=== PATIENT | male | born 1990 | race Caucasian/White ===

== ENCOUNTER 2018-09-24 10:36 | Emergency (ER) | payer OTHER ==
[2018-09-24 10:43] VITALS: BP 113/77
[2018-09-24] MEDS ORDERED: PROPARACAINE 0.5% 15 ML OPHT DROP OP ONE (10:45)
[2018-09-24] MEDS ORDERED: FLUORESCEIN SODIUM 1 MG STRIP OP ONE (10:45)
[2018-09-24] MEDS ORDERED: OFLOXACIN 0.3% SOLN PREPACK OPHT.BTL TAKEHOME ONE (11:26)
--- NOTE | 2018-09-24 11:41 | EDPHY ---
General Time Seen by Provider: 09/24/18 11:38 Narrative: CHIEF COMPLAINT: something in my eye HISTORY OF PRESENT ILLNESS: Patient present to ED by private vehicle with complaints of something in his right eye. 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 He was not wearing protective goggles. Mild discomfort that evening that became more severe Wednesday evening. Pain has kept him awake, and he feels that something is stuck in his eye. Some blurred vision. No headache or fever. Went to urgent care first, and they sent him here due to foreign body of the eye. Tetanus up to date less than 5 years. He does report contact lens use. No other associated complaints or modifying factors. REVIEW OF SYSTEMS: 10 systems were reviewed and negative with the exception of the elements mentioned in the history of present illness. PCP: None SPECIALISTS: None PAST MEDICAL HISTORY: No ongoing medical problems PAST SURGICAL HISTORY: No recent surgery SOCIAL HISTORY: non smoker. lives and works independently FAMILY HISTORY: non contributory EXAMINATION: Vitals: Triage VS reviewed General Appearance: Alert, no distress. well appearing. Head: normocephalic, atraumatic Eyes: Pupils equal and round, no conjunctival pallor. mild right eye conjunctival injection. no hyphema or subconjunctival hemorrhage. i do not appreciate papilledema Slit lamp: fluorescein uptake at 12 o'clock position. hyperpigmentation at 2 o' clock position, reportedly chronic. small (1mm) foreign body at 6 o'clock position with small area of surrounding rust ring. able to remove this with sterile eye bur. no floaters or cell appreciated in the anterior chamber. Neurological: A&O, nonfocal, normal gait Skin: Warm and dry, no rash. no periorbital or facial cellulitis. DIFFERENTIAL DIAGNOSES: Including but not limited to corneal abrasion, conjunctival abrasion, conjunctival foreign body, corneal ulceration. MDM: 11:15 am. Acute right conjunctival foreign body with corneal abrasion and small rust ring retained. There was no metal foreign body visualized. I was able to bur a significant portion of the rust ring from the cornea, and this was tolerate well. I will discuss with ophthalmology. 11:50 a.m. Case discussed with Dr. Mandujano. We discussed the foreign body, rust ring and corneal abrasion. We also discussed the incidental pigmentation color. He recommends ofloxacin qid and a soft patch until tomorrow. He would like to see the patient in his office wednesday morning. I've discussed this with the patient and he agrees to comply. I have written a prescription ofloxacin and provided a take home starter pack. We discussed strict follow up on Wednesday for the foreign body and the discoloration of the eye. We discussed ED precautions for worsening vision, painful movement of the eye, redness around the eye, headache , fever. We discussed that he may not use his contacts until cleared by Dr. Mandujano. I have answered all of his questions, and he is discharged home in stable condition. SUPERVISION: Independent evaluation. CONSULTATION: Ophthalmology by telephone, Dr. Mandujano. - History Smoking Status: Current every day smoker - Objective Vital Signs: Initial Vital Signs Temperature (C) 98.2 F 09/24/18 10:41 Heart Rate 65 09/24/18 10:41 Respiratory Rate 18 09/24/18 10:41 Blood Pressure 113/77 09/24/18 10:41 O2 Sat (%) 97 09/24/18 10:41 O2 Delivery Mode Room Air Allergies/Adverse Reactions: No Known Allergies Allergy (Verified 09/24/18 10:40) Home Medications: Medication Instructions Recorded Ofloxacin 5 ml OP AD #1 btl 09/24/18 oxyCODONE HCL/ACETAMINOPHEN 1 each PO Q4-6PRN PRN #5 tablet 09/24/18 [Percocet 5-325 mg Tablet] Medications Given: Discontinued Medications Fluorescein Sodium (Bioglo) 1 mg OP EDNOW ONE Stop: 09/24/18 10:46 Last Admin: 09/24/18 11:25 Dose: 1 mg Ofloxacin (Ocuflox 0.3% Opht Drops Prepack) 1 btl TAKEHOME EDNOW ONE Stop: 09/24/18 11:27 Last Admin: 09/24/18 11:50 Dose: 1 btl Proparacaine HCl (Alcaine 0.5%) 1 drops OP EDNOW ONE Stop: 09/24/18 10:46 Last Admin: 09/24/18 11:25 Dose: 1 drop Departure - Departure Disposition: Home, Routine, Self-Care Clinical Impression: Foreign body in cornea, right eye, initial encounter, Discoloration of eye Corneal abrasion Qualifiers: Encounter type: initial encounter Laterality: right Qualified Code(s): S05.01XA - Injury of conjunctiva and corneal abrasion without foreign body, right eye, initial encounter Condition: Good Instructions: Ofloxacin (Into the ear), Corneal Abrasion (ED), Eye Foreign Body (ED) Additional Instructions: 1. Eye patch as needed for symptom control. You remove this tomorrow as tolerated 2. Ofloxacin drops in the right eye. Two drops every 4 hours x2 days. Then 1- 2 drops 4 times daily while awake for an additional 5 days. 3. Follow up with manager plan on Wednesday without fail. You will need to call them for appointment 4. Return to emergency department for any worsening symptoms, difficulty with vision, fever, worse pain 5. You may also use artificial tears, [id number], frequently throughout the day as needed in the right eye 6. You will need to discuss the reportedly chronic discoloration of your right eye with Dr. Mandujano for further care. Referrals: Abhinav Manduajno MD [Medical Doctor] - As per Instructions Prescriptions: Ofloxacin 5 ml OP AD #1 btl oxyCODONE HCL/ACETAMINOPHEN [Percocet 5-325 mg Tablet] 1 each PO Q4-6PRN PRN #5 tablet PRN Reason: Pain, Breakthrough
== END 2018-09-24 12:19 | disposition home or self-care (01) ==
PROC: 08C8XZZ Extirpation of Matter from Right Cornea, External Approach (ICD-10-PCS; principal; 2018-09-24)
DX: S00.251A Superficial foreign body of right eyelid and periocular area, initial encounter (principal); W20.8XXA Other cause of strike by thrown, projected or falling object, initial encounter; Y93.H3 Activity, building and construction; Y92.9 Unspecified place or not applicable; Y99.9 Unspecified external cause status